=== PATIENT | female | born 1955 | race Caucasian/White ===

== ENCOUNTER 2017-10-04 11:23 | Inpatient (IN) ==
[2017-10-04 13:46] LABS: ABG Base Excess 7.5 MMOL/L (-2.5-2.5); ABG HCO3 31.1 MMOL/L (20-26); ABG Oxygen Saturation 90.1 % (95-100); ABG PCO2 44.2 MM HG (35-48); ABG TCO2 28.5 MMOL/L (23-27); Allen Test Positive
[2017-10-04 13:47] LABS: Basophils % 0.1 % (0.0-0.8); Eosinophils # 0.1 10*3/uL (0.0-0.87); Eosinophils % 1.2 % (0.00-10.9); Hematocrit 37.2 VOL% (35.7-47.0); Hemoglobin 12.5 GM/DL (12.0-16.0); Immature Granulocytes % 1.4 %; Immature Granulocytes Absolute 0.12 #; Lymphocytes # 1.9 10*3/uL (1.4-4.0); Lymphocytes % 23.1 % (21.3-54.2); Mean Corpuscular HGB Conc 33.6 GM/DL (32-36); Mean Corpuscular Hemoglobin 30 PG (27-34); Mean Corpuscular Volume 90.1 FL (87-102); Mean Platelet Volume 12.1 FL (9.6-12.0); Monocytes # 0.4 10*3/uL (0.11-0.8); Monocytes % 4.2 % (1.7-12.7); Neutrophils # 5.9 10*3/uL (1.4-7.4); Platelet Count 262 T/CUMM (130-400); Red Blood Count 4.13 MC/CUMM (3.8-5.5); White Blood Count 8.4 T/CUMM (4-12)
[2017-10-04 13:55] LABS: INR 0.9; PT Patient Result 9.7 SECS
[2017-10-04] MEDS ORDERED: cefTRIAXone 1,000 MG in SODIUM CHLORIDE 0.9% 100 ML IV STA (13:59)
[2017-10-04 14:05] LABS: Alanine Aminotransferase 23 U/L (13-56); Albumin 3.4 G/DL (3.4-5.0); Alkaline Phosphatase 104 U/L (45-117); Ammonia 29 UMOL/L (11-32); Aspartate Amino Transferase 15 U/L (0-37); Bilirubin,Total < 0.39 MG/DL (0.2-1.0); Blood Urea Nitrogen 11 MG/DL (7-18); Calcium 8.7 MG/DL (8.5-10.1); Glucose 144 MG/DL (74-106); Osmolality,Calculated 278.5 MOS/KG (273-304); Potassium 2.6 MMOL/L (3.5-5.1); Sodium 139 MMOL/L (136-145); Total Protein 6.8 G/DL (6.4-8.3); Troponin I Only < 0.015 NG/ML (0.00-0.045)
[2017-10-04 14:12] LABS: Prolactin 1.8 NG/ML
[2017-10-04] MEDS ORDERED: POTASSIUM CHLORIDE 20 MEQ TABLET PO STA (14:20)
[2017-10-04] MEDS ORDERED: methylPREDNISolone SOD SUC 125 MG/2 ML VIAL IV STA (14:22)
[2017-10-04] MEDS ORDERED: ALBUTEROL/IPRATROPIUM 3 ML NEB RESP TX STA (14:22)
[2017-10-04 14:53] LABS: Sedimentation Rate-Westergren 86 MM/HR (0-30)
[2017-10-04 15:52] LABS: Apearance,Urine CLEAR (Clear); Bilirubin,Urine Negative (Negative); Blood, Urine Negative (Negative); Glucose,Urine (UA) Negative (Negative); Ketones,Urine Negative (Negative); Nitrite,Urine Negative (Negative); Protein,Urine Negative; Urine Color Straw (Yellow); Urine Specific Gravity 1.003 (1.001-1.035); Urine Urobilinogen < 2.0 EU/DL (0.2-1.0)
[2017-10-04 16:04] LABS: Barbiturates Screen,Urine Negative (Negative); Benzodiazepines Screen,Urine Negative (Negative); Cannabinoid Screen,Urine Negative (Negative); Opiate Screen,Urine Positive (Negative); Phencyclidine Screen,Urine Negative (Negative)
[2017-10-04] MEDS ORDERED: SODIUM CHLORIDE 0.9% 1,000 ML IV ONE (17:12)
[2017-10-04] MEDS ORDERED: ACETAMINOPHEN 325 MG TABLET PO PRN (17:12)
[2017-10-04] MEDS ORDERED: DOCUSATE SODIUM 100 MG CAPSULE PO PRN (17:12)
[2017-10-04] MEDS ORDERED: MORPHINE 4 MG/1 ML VIAL IV PRN (17:12)
[2017-10-04] MEDS ORDERED: DEXTROSE 50% 25 GM/50 ML VIAL IV PRN (17:12)
[2017-10-04] MEDS ORDERED: guaiFENesin/DM ER 600-30 MG TABLET PO PRN (17:12)
[2017-10-04] MEDS ORDERED: diphenhydrAMINE CAP 25 MG CAPSULE PO PRN (17:12)
[2017-10-04] MEDS ORDERED: ONDANSETRON 4 MG/2 ML VIAL IV PRN (17:12)
[2017-10-04] MEDS ORDERED: NICOTINE 21 MG/24 HR PATCH TRANSDERM PRN (17:12)
[2017-10-04] MEDS ORDERED: GLUCAGON 1 MG VIAL IM PRN (17:12)
[2017-10-04] MEDS ORDERED: GABAPENTIN 300 MG CAPSULE PO PRN (17:20)
[2017-10-04] MEDS ORDERED: MELOXICAM 7.5 MG TABLET PO PRN (17:20)
[2017-10-04] MEDS ORDERED: LABETALOL 20 MG/4 ML SYRINGE IV PRN (17:26)
[2017-10-04] MEDS ORDERED: ALBUTEROL 2.5 MG/3 ML NEB RESP TX PRN (17:34)
[2017-10-04] MEDS: ALBUTEROL/IPRATROPIUM 3 ML NEB RESP TX SCH (19:38)
[2017-10-04] MEDS ORDERED: LEVOFLOXACIN INJ 750 MG in PREMIX 1 EACH IV SCH (21:00)
[2017-10-04] MEDS: BRIMONIDINE TART LEFT EYE SCH (23:04)
[2017-10-04] MEDS: INSULIN LISPRO 100 UNIT/ML SUBCUT SCH (23:04)
[2017-10-04] MEDS: BRINZOLAMIDE LEFT EYE SCH (23:04)
[2017-10-04] MEDS: SODIUM CHLORIDE 0.9% 1,000 ML IV SCH (23:20)
[2017-10-04] MEDS: POTASSIUM CHLORIDE 20 MEQ TABLET PO SCH (23:21)
[2017-10-04] MEDS: DONEPEZIL 5 MG TABLET PO SCH (23:21)
[2017-10-04] MEDS: PANTOPRAZOLE 40 MG TABLET PO SCH (23:21)
[2017-10-04] MEDS: SUCRALFATE 1 GM TABLET PO SCH (23:21)
[2017-10-04] MEDS: TRIAMCINOLONE 0.1% CREAM 15 GM TUBE TOP SCH (23:23)
[2017-10-04] MEDS: ENOXAPARIN 40 MG/0.4 ML SYRINGE SUBCUT SCH (23:23)
[2017-10-04] MEDS: prednisoLONE ACETATE 1% OPH SUSP 5 ML BOTTLE LEFT EYE SCH (23:24)
[2017-10-04] MEDS: LATANOPROST 0.005% OPH SOLN 2.5 ML BOTTLE BOTH EYES SCH (23:24)
[2017-10-04] MEDS: BENZTROPINE 0.5 MG TABLET PO SCH (23:37)
[2017-10-05] MEDS: NYSTATIN CREAM 15 GM TUBE TOP SCH ×3 (00:10→22:43)
[2017-10-05] MEDS: FLUTICASONE 50 MCG NASAL SPRAY 16 GM BOTTLE BOTH NARES SCH ×3 (00:10→22:40)
[2017-10-05] MEDS: MUPIROCIN 2% OINT 22 GM TUBE TOP SCH ×4 (00:10→22:42)
[2017-10-05] MEDS: ARIPiprazole 10 MG TABLET PO SCH ×2 (00:11→22:39)
[2017-10-05] MEDS: ALBUTEROL/IPRATROPIUM 3 ML NEB RESP TX SCH ×4 (01:05→20:08)
[2017-10-05] MEDS: SODIUM CHLORIDE 0.9% 1,000 ML IV SCH ×3 (01:30→18:23)
[2017-10-05 05:13] LABS: Basophils % 0.1 % (0.0-0.8); Hematocrit 35.8 VOL% (35.7-47.0); Hemoglobin 11.8 GM/DL (12.0-16.0); Immature Granulocytes % 1.2 %; Immature Granulocytes Absolute 0.08 #; Lymphocytes # 0.9 10*3/uL (1.4-4.0); Lymphocytes % 12.7 % (21.3-54.2); Mean Corpuscular Hemoglobin 30 PG (27-34); Mean Corpuscular Volume 89.5 FL (87-102); Mean Platelet Volume 11.6 FL (9.6-12.0); Monocytes % 0.6 % (1.7-12.7); Neutrophils # 5.8 10*3/uL (1.4-7.4); Neutrophils % 85.4 % (38.7-73.9); Platelet Count 274 T/CUMM (130-400); White Blood Count 6.8 T/CUMM (4-12)
[2017-10-05 05:46] LABS: Calcium 8.7 MG/DL (8.5-10.1); Osmolality,Calculated 284.3 MOS/KG (273-304); Potassium 3.1 MMOL/L (3.5-5.1); Risk Ratio 3.8; VLDL CHOLESTEROL 22.4 MG/DL
[2017-10-05 06:47] LABS: Apearance,Urine Slightly Hazy (Clear); Bacteria,Urine Occasional /HPF (Few); Bilirubin,Urine Negative (Negative); Blood, Urine Negative (Negative); Glucose,Urine (UA) Negative (Negative); Ketones,Urine Negative (Negative); Nitrite,Urine Negative (Negative); Protein,Urine Negative; RBC,Urine 1 /HPF (0-4); Squamous Epithelial Cell,Urine Few /HPF (0-10); Urine Color Yellow (Yellow); Urine Specific Gravity 1.006 (1.001-1.035); Urine Urobilinogen < 2.0 EU/DL (0.2-1.0); WBC,Urine <1 /HPF (0-6)
[2017-10-05] MEDS ORDERED: PANTOPRAZOLE 40 MG TABLET PO SCH (09:00)
[2017-10-05] MEDS: POTASSIUM CHLORIDE 20 MEQ TABLET PO PRN ×4 (09:12→17:15)
[2017-10-05] MEDS: MONTELUKAST 10 MG TABLET PO SCH (09:12)
[2017-10-05] MEDS: INSULIN LISPRO 100 UNIT/ML SUBCUT SCH ×2 (09:12→17:08)
[2017-10-05] MEDS: FLUoxetine 20 MG CAPSULE PO SCH (09:12)
[2017-10-05] MEDS: ASPIRIN EC 81 MG TABLET PO SCH (09:12)
[2017-10-05] MEDS: POTASSIUM CHLORIDE 20 MEQ TABLET PO SCH ×3 (09:12→22:37)
[2017-10-05] MEDS: INDAPAMIDE 2.5 MG TABLET PO SCH (09:13)
[2017-10-05] MEDS: prednisoLONE ACETATE 1% OPH SUSP 5 ML BOTTLE LEFT EYE SCH ×2 (09:13→22:36)
[2017-10-05] MEDS: SUCRALFATE 1 GM TABLET PO SCH ×4 (09:13→22:38)
[2017-10-05] MEDS: TRIAMCINOLONE 0.1% CREAM 15 GM TUBE TOP SCH ×2 (09:13→22:43)
[2017-10-05] MEDS: PANTOPRAZOLE 40 MG TABLET PO SCH ×2 (09:13→22:40)
[2017-10-05] MEDS: amLODIPine 5 MG TABLET PO SCH (09:15)
[2017-10-05] MEDS: BRINZOLAMIDE LEFT EYE SCH ×2 (09:55→21:00)
[2017-10-05] MEDS: BRIMONIDINE TART LEFT EYE SCH ×2 (09:55→21:00)
[2017-10-05] MEDS: BENZTROPINE 0.5 MG TABLET PO SCH ×2 (11:10→22:40)
[2017-10-05] MEDS: LEVOFLOXACIN INJ 750 MG in PREMIX 1 EACH IV SCH (11:10)
[2017-10-05] MEDS: DONEPEZIL 5 MG TABLET PO SCH (22:38)
[2017-10-05] MEDS: LATANOPROST 0.005% OPH SOLN 2.5 ML BOTTLE BOTH EYES SCH (22:44)
[2017-10-05] MEDS: ENOXAPARIN 40 MG/0.4 ML SYRINGE SUBCUT SCH (22:47)
[2017-10-06] MEDS: SODIUM CHLORIDE 0.9% 1,000 ML IV SCH ×3 (00:27→10:26)
[2017-10-06] MEDS: ALBUTEROL/IPRATROPIUM 3 ML NEB RESP TX SCH ×2 (01:42→06:51)
[2017-10-06 08:13] VITALS: BP 136/68
[2017-10-06] MEDS: INSULIN LISPRO 100 UNIT/ML SUBCUT SCH (09:19)
[2017-10-06] MEDS: MONTELUKAST 10 MG TABLET PO SCH (09:21)
[2017-10-06] MEDS: ASPIRIN EC 81 MG TABLET PO SCH (09:21)
[2017-10-06] MEDS: INDAPAMIDE 2.5 MG TABLET PO SCH (09:21)
[2017-10-06] MEDS: BENZTROPINE 0.5 MG TABLET PO SCH (09:21)
[2017-10-06] MEDS: PANTOPRAZOLE 40 MG TABLET PO SCH (09:21)
[2017-10-06] MEDS: FLUoxetine 20 MG CAPSULE PO SCH (09:21)
[2017-10-06] MEDS: SUCRALFATE 1 GM TABLET PO SCH (09:22)
[2017-10-06] MEDS: MUPIROCIN 2% OINT 22 GM TUBE TOP SCH (09:22)
[2017-10-06] MEDS: NYSTATIN CREAM 15 GM TUBE TOP SCH (09:22)
[2017-10-06] MEDS: prednisoLONE ACETATE 1% OPH SUSP 5 ML BOTTLE LEFT EYE SCH (09:22)
[2017-10-06] MEDS: FLUTICASONE 50 MCG NASAL SPRAY 16 GM BOTTLE BOTH NARES SCH (09:22)
[2017-10-06] MEDS: TRIAMCINOLONE 0.1% CREAM 15 GM TUBE TOP SCH (09:22)
[2017-10-06] MEDS: POTASSIUM CHLORIDE 20 MEQ TABLET PO SCH (09:22)
[2017-10-06] MEDS: amLODIPine 5 MG TABLET PO SCH (09:22)
[2017-10-06] MEDS: BRIMONIDINE TART LEFT EYE SCH (09:23)
[2017-10-06] MEDS: BRINZOLAMIDE LEFT EYE SCH (09:23)
[2017-10-06] MEDS: LEVOFLOXACIN INJ 750 MG in PREMIX 1 EACH IV SCH ×2 (09:26→10:26)
[2017-10-08] MEDS ORDERED: ERGOCALCIFEROL 50,000 UNIT CAPSULE PO SCH (09:00)
== END 2017-10-06 11:46 | disposition home or self-care (01) | DRG 91 ==
LOC: N.ED 11:23 → N.EDINP 17:12 → N.TELES 18:16
PROVIDERS: ADMIT Internal Medicine Geriatric Medicine; ATTEND Internal Medicine Geriatric Medicine